=== PATIENT | male | born 1975 | race Caucasian/White ===

== ENCOUNTER 2018-09-28 14:17 | Emergency (ER) | payer MEDICAID, SELFPAY ==
[2018-09-28 14:22] VITALS: BP 114/66; PULSE 63; RESP 14; TEMP 36.8; O2SAT 98
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
[2018-09-28] MEDS: Normal Saline 1,000 ML 1000 ML IV (14:50)
[2018-09-28 14:59] LABS: Abs Immature Grans 0.01 k/cumm (0.0-0.09); Absolute Basophil Count 0.08 k/cumm (0.0-0.2); Absolute Eosinophil Count 0.26 k/cumm (0.0-0.7); Absolute Lymphocyte Count 3.19 k/cumm (1.2-3.4); Absolute Monocyte Count 0.71 k/cumm (0.11-0.7); Absolute Neutrophil Count 4.19 k/cumm (1.2-6.7); Basophils % 0.9; Eosinophils % 3.1; HCT 40.6 % (40.0-50.0); HGB 14.3 g/dL (13.5-17.5); Immature Grans % 0.1; Lymphocytes % 37.8; Mean Corp. HGB Concentration 35.2 g/dL (32.0-36.0); Mean Corpuscular Hemoglobin 29.8 pg (27.0-33.0); Mean Corpuscular Volume 84.6 fL (80-95); Mean Platelet Volume 10.3 fL (8.0-11.0); Monocytes % 8.4; Neutrophils % 49.7; Platelet Count 317 x1000/uL (130-400); RBC Distribution Width 13.2 % (11.8-14.1); White Blood Cell Count 8.44 k/cumm (4.4-10.8)
[2018-09-28 15:06] LABS: Bilirubin Negative (Negative); Blood Negative (Negative); Clarity Clear (Clear); Glucose 500 mg/dL (Negative); Ketones Trace mg/dL (Negative); Leukocyte Esterase Negative (Negative); Nitrite Negative (Negative); Specific Gravity 1.015 (1.005-1.025); Urobilinogen 0.2 EU/dL (Up TO 0.2)
[2018-09-28 15:14] LABS: ALT 19 U/L (12-78); Albumin 3.4 g/dL (3.4-5.0); Alkaline Phosphatase 88 U/L (46-116); Anion Gap 8.6 mmol/L (3-11); BUN 16 mg/dL (7-18); Bilirubin, Total 0.2 mg/dL (0.2-1.0); CO2 25.4 mmol/L (21.0-32.0); CREATININE 0.88 mg/dL (0.70-1.30); Calcium 8.6 mg/dL (8.5-10.1); Chloride 98 mmol/L (98-107); Glucose 375 mg/dL (70-100); Lipase 197 U/L (73-393); Magnesium 1.7 mg/dL (1.8-2.4); Potassium 3.9 mmol/L (3.5-5.1); Sodium 132 mmol/L (136-145); Total Protein 7.1 g/dL (6.4-8.2)
[2018-09-28 15:15] LABS: Troponin I < 0.05 ng/mL (0.00-0.06)
[2018-09-28 15:25] LABS: AST 5 U/L (15-37)
[2018-09-28] MEDS: Insulin REGULAR-Human 100 UNITS/ML UNIT SC (15:47)
== END 2018-09-28 17:22 | disposition home or self-care (01) ==
PROVIDERS: Emergency Provider Physician Assistant
DX: E11.65 Type 2 diabetes mellitus with hyperglycemia (principal); F41.9 Anxiety disorder, unspecified; Z79.4 Long term (current) use of insulin
CPT/HCPCS: 36415; 36416; 80053; 82962; 83690; 96360; 96372; 99284; 81003; 83735; 84484; 85025